=== PATIENT | male | born 1945 | race Caucasian/White ===

== ENCOUNTER 2023-07-13 12:56 | Emergency (ER) | payer MEDICARE, SELFPAY ==
--- NOTE | ~2023-07-13 | XR_ITS ---
EXAMINATION: XR hand LT min 3V INDICATION: Left hand pain, initial encounter TECHNIQUE: Three views of the left hand are obtained. COMPARISON: None available FINDINGS: There is an acute, traumatic, oblique neck fracture of the fifth metacarpal. There are 5 mm of separation of fragments at the proximal aspect of the fracture. There is moderate osteoarthritis of the triscaphe and first carpometacarpal joints, and the second and third metacarpophalangeal joint s. There is mild osteoarthritis of multiple interphalangeal joints. IMPRESSION: 1. Acute minimally displaced oblique neck fracture of the fifth metacarpal. 2. Polyarticular osteoarthritis. Reviewed, dictated and finalized at location B.
[2023-07-13 13:09] VITALS: BP 135/57; PULSE 76; RESP 18; TEMP 37.1; O2SAT 98
--- NOTE | 2023-07-13 13:18 | ED.UPPEXIN ---
HPI - Extremity Injury (Upper) General Chief Complaint: Extremity Injury, Upper Stated Complaint: Left Hand Injury Time Seen by Provider: 07/13/23 13:18 Source: patient, RN notes reviewed and old records reviewed Mode of arrival: ambulatory Limitations: no limitations History of Present Illness HPI narrative: 78-year-old male presents to the [facility] with complaints of left hand pain. Patient states that he fell last night forward hitting his hand. States that is 5th finger was reporting sideways, put it back in place and went to bed. Comes in today with some significant pain, swelling, bruising to the left hand. Sensation intact all 5 fingers. Full range of motion of the hip and dip joints. Tenderness at the MCP of the 5th and 4th fingers. Capillary refill under 2 seconds. Positive radial it is Denies neck or back pain curb Patient did hit face, states that he does not want to be seen for the facial. Just wants to be examined for his hand Patient not a good story for past medical history Related Data Home Medications Medication Instructions Recorded Confirmed allopurinol 300 mg tablet 300 mg DIRECTED 07/13/23 07/13/23 amlodipine 10 mg tablet 10 mg DIRECTED 07/13/23 07/13/23 apixaban 5 mg tablet (Eliquis) 5 mg DIRECTED 07/13/23 07/13/23 escitalopram oxalate 10 mg tablet 10 mg DIRECTED 07/13/23 07/13/23 Allergies Allergy/AdvReac Type Severity Reaction Status Date / Time No Known Allergies Allergy Verified 07/13/23 13:32 Review of Systems Review of Systems: All systems reviewed & are unremarkable except as noted in HPI and below Constitutional: Constitutional: Reports no additional constitutional complaints Eyes: Eyes: Reports no additional eye complaints ENT: Reports system reviewed and no additional complaints, except as documented Cardiovascular: Cardiovascular: Reports no additional cardiovascular complaints, Denies chest pain and Denies dyspnea Respiratory: Respiratory: Reports no additional respiratory complaints, Denies chest congestion, Denies cough and Denies dyspnea Gastrointestinal: Gastrointestinal: Reports no additional gastrointestinal complaints, Denies abdominal pain, Denies nausea and Denies vomiting Musculoskeletal: Musculoskeletal: Reports as per HPI Integumentary/Breasts: Skin/Breast: Reports system reviewed and no additional complaints, except as docu Neurologic: Reports system reviewed and no additional complaints, except as documented Psychiatric: Psychiatric: Reports no additional psychiatric complaints Allergic/Immunologic: Allergic/Immunologic: Reports no additional allergic/immunologic complaints PMFSH Past Medical History Medical History History of high blood pressure Comments At the time of my signature, I reviewed and agree with the nursing past medical, surgical, social, and family history. There is no relevant family history pertinent to the patient complaint. Exam Const: General: cooperative, healthy appearing, comfortable, no acute distress, well developed, alert and well nourished Nutritional Appearance: well nourished Orientation/consciousness: patient oriented x3 Limitations: no limitations HENMT: Head: normal to inspection Head images: 1. Bruising, swelling and tenderness. Ears: hearing grossly normal bilaterally, external ears normal, TM's normal bilaterally, EAC's normal and mastoids normal Face/Nose/Sinus: Normal external nose present, Normal nares present, Normal nasal mucous membranes and turbinates present, normal facial exam and face symmetric Face and sinus: normal facial exam and face symmetric Mouth: Yes Normal oral and palatal mucosa present, Yes lip normal and Yes moist mucous membranes Throat: posterior oropharynx normal and uvula midline Eyes: General: appearance normal, both eyes and all related structures Alignment and Position: alignment normal Periorbital: periorbita
== END 2023-07-13 14:09 | disposition home or self-care (01) ==
PROVIDERS: Emergency Provider Nurse Practitioner; PCP Internal Medicine
DX: S62.337A Displaced fracture of neck of fifth metacarpal bone, left hand, initial encounter for closed fracture (principal); S05.12XA Contusion of eyeball and orbital tissues, left eye, initial encounter; W19.XXXA Unspecified fall, initial encounter; I10 Essential (primary) hypertension
CPT/HCPCS: 29125; 73130; 99214; A4565; G0463